=== PATIENT | male | born 1960 | race African-American/Black ===

== ENCOUNTER 2022-08-19 18:24 | Emergency (ER) | payer MEDICAID ==
[~2022-08-19] VITALS: Ht 177.8 cm; Wt 104.0 kg
[2022-08-19 18:30] VITALS: BP 121/57
[2022-08-19] MEDS ORDERED: NITROGLYCERIN 0.4MG TABLET SL SL PRN (18:45)
[2022-08-19] MEDS ORDERED: ASPIRIN 81MG TABLET PO ONE (18:45)
[2022-08-19 18:57] LABS: BASOPHILS % 0.7 % (0.0-2.0); EOSINOPHILS % 0.8 % (0.0-5.0); HEMATOCRIT. 42.9 % (42.0-52.0); HEMOGLOBIN. 13.9 g/dL (14.0-18.0); LYMPHOCYTES % 22.8 % (20.0-50.0); MEAN CORPUSCULAR HEMOGLOBIN 25.2 pg (28.0-32.0); MEAN CORPUSCULAR VOLUME 78.1 fL (80.0-94.0); MEAN PLATELET VOLUME 8.5 fl (7.4-10.4); MONOCYTES % 8.5 % (2.0-8.0); NEUTROPHILS % 67.2 % (40.0-76.0); PLATELET 244 x1000/uL (130-400); RED BLOOD CELL COUNT 5.49 mill/uL (4.7-6.1); RED CELL DISTRIBUTION WIDTH 16.2 % (11.6-14.6)
[2022-08-19 19:05] LABS: CHLORIDE 112 mEq/L (98-107)
[2022-08-19 19:17] LABS: ETHANOL BLOOD 143 mg/dL
== END 2022-08-19 19:34 | disposition left against medical advice (07) ==
LOC: ER 18:24
DX: R07.89 Other chest pain (principal); T51.0X1A Toxic effect of ethanol, accidental (unintentional), initial encounter; I25.2 Old myocardial infarction; Z98.890 Other specified postprocedural states; Y92.9 Unspecified place or not applicable
CPT/HCPCS: 36415; 80053; 80320; 83880; 84484; 85025; 93005; 99284; G0480